=== PATIENT | female | born 1980 | race Caucasian/White ===

== ENCOUNTER 2019-10-23 23:13 | Emergency (ER) | payer MEDICAID ==
--- NOTE | 2019-10-23 23:16 | ED Physician Documentation ---
History of Present Illness - Stated complaint Stated Complaint: NUMB FACE/BODY RASH - History obtained from History obtained from: Patient (The patient is a 39-year-old female who presents with a chief complaint of rash. She was treated and diagnosed at a separate emergency room about 5 days ago with urticaria was given a prescription for 20 mg of prednisone daily for 5 days, her last dose was yesterday also hydroxyzine Pepcid and Zyrtec. She reports her symptoms had an been improving but they returned tonight without chest pain without headache without neck pain without syncope without bleeding without any rashes in her mouth she denies rashes on her hands or feet. She reports she is otherwise healthy and does not take any daily medications.She denies any changes in detergents or any new soaps or any contact with poison ander she is very concerned given the current pandemic of COVID-19 but she denies fevers or cough.) Review of Systems Constitutional: reports: Reviewed and negative Eyes: reports: Reviewed and negative Ears: reports: Reviewed and negative Nose: reports: Reviewed and negative Throat: reports: Reviewed and negative Cardiac: reports: Reviewed and negative Respiratory: reports: Reviewed and negative GI: reports: Reviewed and negative : reports: Reviewed and negative Skin: reports: Rash, Other (Urticaria) Musculoskeletal: reports: Reviewed and negative Neurologic: reports: Reviewed and negative Psychiatric: reports: Reviewed and negative Endocrine: reports: Reviewed and negative Immunocompromised: reports: Reviewed and negative PD PAST MEDICAL HISTORY - Present Medications Home Medications: Ambulatory Orders Medication Instructions Recorded Confirmed Cetirizine HCl 10 mg PO DAILY 10/23/19 10/23/19 Famotidine 40 mg PO DAILY 10/23/19 10/23/19 hydrOXYzine HCL [Hydroxyzine HCl] 25 mg PO QID PRN 10/23/19 10/23/19 predniSONE [Prednisone] 50 mg PO DAILY 3 Days #3 tablet 10/23/19 - Allergies Allergies/Adverse Reactions: Allergies Allergy/AdvReac Type Severity Reaction Status Date / Time No Known Drug Allergies Allergy Verified 10/23/19 23:32 PD ED PE NORMAL - Vitals Vital signs reviewed: Yes - General General: Alert and oriented X 3, No acute distress, Well developed/nourished - HEENT HEENT: Atraumatic, PERRL, Moist mucous membranes - Neck Neck: Supple, no meningeal sign, No adenopathy - Cardiac Cardiac: RRR, No murmur, Strong equal pulses - Respiratory Respiratory: No respiratory distress, Clear bilaterally - Abdomen Abdomen: Normal bowel sounds, Soft, Non tender, Non distended, No organomegaly - Rectal Rectal: Deferred - Back Back: No CVA TTP, No spinal TTP - Derm Derm: Normal color, Warm and dry, Other (There is a diffuse mild urticarial rash on anterior and posterior trunk there is no petechiae or purpura compartments are soft there is no crepitus no rash on the hands or the feet) - Extremities Extremities: No deformity - Neuro Neuro: Alert and oriented X 3, 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, No motor deficit, No sensory deficit, Normal speech - Psych Psych: Normal mood, Normal affect Results - Vitals Vitals: Vital Signs - 24 hr 10/23/19 23:15 Temperature 36.8 C Heart Rate 92 Respiratory 17 Rate Blood Pressure 147/85 H O2 Saturation 99 Oxygen O2 Source Room air PD MEDICAL DECISION MAKING - ED course Complexity details: considered differential (urticaria, I did offer to do a chest x-ray as well as blood work and EKG however the patient's refusing at this point we will give her 1 dose of prednisone here and then a prescription for prednisone burst for the next 3 days she should continue hydroxyzine as needed as well as Zyrtec and Pepcid. She should follow with up with primary care provider tomorrow for recheck or return to the emergency department any concerns.) Departure - Departure Disposition: 01 Home, Self Care Clinical Impression: Urticaria Condition: Stable Instructions: ED Allergic Reaction General Other Follow-Up: your, doctor [Other] - Tomorrow Prescriptions: predniSONE [Prednisone] 50 mg PO DAILY 3 Days #3 tablet
[2019-10-23] MEDS ORDERED: predniSONE 20 MG TABLET PO STA (23:43)
[2019-10-23 23:46] VITALS: BP 147/85
== END 2019-10-23 23:55 | disposition home or self-care (01) ==
LOC: ED 23:13
DX: L50.9 Urticaria, unspecified (principal)
CPT/HCPCS: 99282; 99284; J7512